=== PATIENT | male | born 1940 | race Caucasian/White ===

== ENCOUNTER 2017-07-23 20:16 | Outpatient (CLI) | payer MEDICARE, OTHER ==
[2017-07-23 19:07] LABS: BASOPHILS % (AUTO) 0.6 %; EOSINOPHILS # (AUTO) 0.4 10^3/uL (0.0-0.7); EOSINOPHILS % (AUTO) 6.2 %; HGB - HEMOGLOBIN 13.9 g/dL (14.0-18.0); LYMPHOCYTES # (AUTO) 1.4 10^3/uL (1.5-3.5); LYMPHOCYTES % (AUTO) 20.3 %; MEAN CORPUSCULAR HEMOGLOBIN 33.2 pg (27.0-31.0); MEAN CORPUSCULAR HGB CONC 32.9 g/dL (32.0-36.0); MEAN CORPUSCULAR VOLUME 100.8 fL (80.0-94.0); MEAN PLATELET VOLUME 7.4 fL (7.4-11.4); MONOCYTES # (AUTO) 0.6 10^3/uL (0.0-1.0); MONOCYTES % (AUTO) 9.2 %; NEUTROPHILS # (AUTO) 4.4 10^3/uL (1.5-6.6); NEUTROPHILS % (AUTO) 63.7 %; PLT - PLATELET COUNT 263 10^3/uL (130-450); RED BLOOD COUNT 4.19 10^6/uL (4.70-6.10); RED CELL DISTRIBUTION WIDTH 12.8 % (12.0-15.0); WHITE BLOOD COUNT 6.8 x10^3/uL (4.8-10.8)
[2017-07-23 19:29] LABS: HEMOGLOBIN A1C 0.83 g/dL; HEMOGLOBIN A1C % 7.2 % (4.6-6.2)
[2017-07-23 19:35] LABS: ALBUMIN 4.2 g/dL (3.2-5.5); ALBUMIN/GLOBULIN RATIO 1.4 (1.0-2.2); ALKALINE PHOSPHATASE 43 IU/L (42-121); ALT ALANINE AMINOTRANSFERASE 17 IU/L (10-60); AST ASPARTATE AMINOTRANSFERASE 19 IU/L (10-42); BILIRUBIN,TOTAL 1.2 mg/dL (0.2-1.0); BUN - BLOOD UREA NITROGEN 18 mg/dL (6-20); CALCIUM 9.6 mg/dL (8.5-10.3); CARBON DIOXIDE - CO2 26 mmol/L (21-32); CHLORIDE 104 mmol/L (101-111); CHOLESTEROL 143 mg/dL; CREATININE 1.2 mg/dL (0.6-1.2); GFR - MDRD 59 (>89); GLUCOSE 127 mg/dL (70-100); HDL CHOLESTEROL 48 mg/dL; LDL CHOLESTEROL,CALCULATED 80 mg/dL; LDL/HDL RATIO 1.7 (<3.6); PSA FREE 0.02 ng/mL (0.16-2.81); PSA TOTAL 0.11 ng/mL (0.000-2.000); SODIUM 137 mmol/L (135-145); TOTAL PROTEIN 7.1 g/dL (6.7-8.2); VLDL CHOLESTEROL 15 mg/dL
== END 2017-07-23 20:17 | disposition home or self-care (01) ==
LOC: LAB.WCP 20:16
PROVIDERS: ATTEND Family Medicine
DX: I10 Essential (primary) hypertension (principal); E11.9 Type 2 diabetes mellitus without complications; E03.9 Hypothyroidism, unspecified; G47.30 Sleep apnea, unspecified; N40.0 Benign prostatic hyperplasia without lower urinary tract symptoms
CPT/HCPCS: 36415; 80053; 80061; 82043; 83036; 83721; 84154; 84443; 85025

== ENCOUNTER → 2018-04-22 | Outpatient (CLI) | payer MEDICARE, OTHER ==
[2018-04-22 13:35] LABS: ALBUMIN 4.2 g/dL (3.2-5.5); ALBUMIN/GLOBULIN RATIO 1.3 (1.0-2.2); BILIRUBIN,TOTAL 1.3 mg/dL (0.2-1.0); CALCIUM 9.7 mg/dL (8.5-10.3); CREATININE 1.3 mg/dL (0.6-1.2); TOTAL PROTEIN 7.4 g/dL (6.7-8.2)
[2018-04-22 13:58] LABS: HB2 TOTAL 16.3 g/dL; HEMOGLOBIN A1C 1.01 g/dL; HEMOGLOBIN A1C % 7.8 % (4.6-6.2)
== END ==
LOC: LAB.WCP 08:25
PROVIDERS: ATTEND Family Medicine
DX: E78.5 Hyperlipidemia, unspecified (principal); E11.9 Type 2 diabetes mellitus without complications
CPT/HCPCS: 36415; 80053; 82043; 83036

== ENCOUNTER 2018-07-08 06:48 | Day surgery (SDC) | payer MEDICARE, OTHER ==
[2018-07-08] MEDS ORDERED: LACTATED RINGERS 1,000 ML IV ONE (07:08)
[2018-07-08] MEDS ORDERED: fentaNYL 250 MCG/5 ML VIAL IVP ONE (08:18)
[2018-07-08] MEDS ORDERED: MIDAZOLAM 2 MG/2 ML VIAL IVP ONE (08:18)
[2018-07-08 09:02] VITALS: BP 112/96
== END 2018-07-08 06:49 | disposition home or self-care (01) ==
LOC: SDS 06:48
PROVIDERS: ATTEND Surgery
PROC: 0DJD8ZZ Inspection of Lower Intestinal Tract, Via Natural or Artificial Opening Endoscopic (ICD-10-PCS; principal; 2018-07-08 08:15)
DX: Z12.11 Encounter for screening for malignant neoplasm of colon (principal); K57.30 Diverticulosis of large intestine without perforation or abscess without bleeding; K64.8 Other hemorrhoids; I10 Essential (primary) hypertension; E11.9 Type 2 diabetes mellitus without complications; Z87.891 Personal history of nicotine dependence; E78.00 Pure hypercholesterolemia, unspecified
CPT/HCPCS: G0121; J7120

== ENCOUNTER 2018-07-16 10:42 | Outpatient (CLI) | payer MEDICARE, OTHER ==
[2018-07-16 19:04] LABS: BASOPHILS # (AUTO) 0.1 10^3/uL (0.0-0.1); EOSINOPHILS # (AUTO) 0.4 10^3/uL (0.0-0.7); HGB - HEMOGLOBIN 14.8 g/dL (14.0-18.0); LYMPHOCYTES # (AUTO) 1.6 10^3/uL (1.5-3.5); LYMPHOCYTES % (AUTO) 26.5 %; MEAN CORPUSCULAR HEMOGLOBIN 34.1 pg (27.0-31.0); MEAN CORPUSCULAR HGB CONC 32.8 g/dL (32.0-36.0); MEAN CORPUSCULAR VOLUME 104.1 fL (80.0-94.0); MEAN PLATELET VOLUME 7.8 fL (7.4-11.4); MONOCYTES # (AUTO) 0.6 10^3/uL (0.0-1.0); MONOCYTES % (AUTO) 9.8 %; NEUTROPHILS # (AUTO) 3.3 10^3/uL (1.5-6.6); NEUTROPHILS % (AUTO) 56.7 %; PLT - PLATELET COUNT 256 10^3/uL (130-450); RED BLOOD COUNT 4.34 10^6/uL (4.70-6.10); RED CELL DISTRIBUTION WIDTH 13.7 % (12.0-15.0); WHITE BLOOD COUNT 5.9 x10^3/uL (4.8-10.8)
[2018-07-16 19:23] LABS: HB2 TOTAL 16.1 g/dL; HEMOGLOBIN A1C 0.97 g/dL; HEMOGLOBIN A1C % 7.7 % (4.6-6.2)
[2018-07-16 19:36] LABS: ALBUMIN 4.1 g/dL (3.2-5.5); ALBUMIN/GLOBULIN RATIO 1.3 (1.0-2.2); ALKALINE PHOSPHATASE 45 IU/L (42-121); ALT ALANINE AMINOTRANSFERASE 18 IU/L (10-60); AST ASPARTATE AMINOTRANSFERASE 18 IU/L (10-42); BILIRUBIN,TOTAL 1.4 mg/dL (0.2-1.0); BUN - BLOOD UREA NITROGEN 20 mg/dL (6-20); CALCIUM 9.3 mg/dL (8.5-10.3); CARBON DIOXIDE - CO2 30 mmol/L (21-32); CHLORIDE 105 mmol/L (101-111); CHOL/HDL RATIO 3.4 (<5.0); CHOLESTEROL 168 mg/dL; CREATININE 1.1 mg/dL (0.6-1.2); GFR - MDRD 65 (>89); GLUCOSE 182 mg/dL (70-100); HDL CHOLESTEROL 50 mg/dL; LDL CHOLESTEROL,CALCULATED 97 mg/dL; LDL/HDL RATIO 1.9 (<3.6); SODIUM 142 mmol/L (135-145); TOTAL PROTEIN 7.3 g/dL (6.7-8.2); VLDL CHOLESTEROL 21 mg/dL
== END 2018-07-16 10:43 | disposition home or self-care (01) ==
LOC: LAB.WCP 10:42
PROVIDERS: ATTEND Physician Assistant Medical
DX: E78.5 Hyperlipidemia, unspecified (principal); E11.9 Type 2 diabetes mellitus without complications; E03.9 Hypothyroidism, unspecified; I10 Essential (primary) hypertension
CPT/HCPCS: 36415; 80053; 80061; 83036; 83721; 84443; 85025

== ENCOUNTER 2018-08-26 13:30 | Outpatient (CLI) | payer MEDICARE, OTHER ==
--- NOTE | 2018-08-26 15:40 | XRAY Report ---
Reason: HYPOXIA Procedure Date: 08/26/2018 Accession Number: [id number] / [id number] Procedure: WCP - Chest 2 View X-Ray CPT Code: 45258 FULL RESULT: EXAM: CHEST RADIOGRAPHY EXAM DATE: 08/26/2018 01:47 PM. CLINICAL HISTORY: Hypoxia. COMPARISON: 08/13/2015 1:43 PM CHEST 2 VIEW PA/LAT 09/05/2015 8:04 PM. TECHNIQUE: 2 views. FINDINGS: Lungs/Pleura: There is stable bilateral calcific pleural plaquing in both hemithoraces and over the domes of the hemidiaphragms consistent with history of asbestos exposure. Stable subsegmental opacities in the lingula and left lower lung. No appreciable effusion or extraventilatory air. Mediastinum: Heart and mediastinal contours are unremarkable. Other: None. IMPRESSION: Stable appearance of calcified pleural plaques bilaterally consistent with a history of asbestos exposure. RADIA
== END 2018-08-26 13:31 | disposition home or self-care (01) ==
LOC: DI.WCP 13:30
PROVIDERS: ATTEND Physician Assistant Medical
DX: R09.02 Hypoxemia (principal); J92.0 Pleural plaque with presence of asbestos
CPT/HCPCS: 71046

== ENCOUNTER 2018-09-06 08:00 | Outpatient (CLI) | payer MEDICARE, OTHER ==
[2018-09-06 13:30] LABS: BASOPHILS # (AUTO) 0.1 10^3/uL (0.0-0.1); BASOPHILS % (AUTO) 1.1 %; EOSINOPHILS # (AUTO) 0.3 10^3/uL (0.0-0.7); HGB - HEMOGLOBIN 14.1 g/dL (14.0-18.0); LYMPHOCYTES # (AUTO) 1.5 10^3/uL (1.5-3.5); LYMPHOCYTES % (AUTO) 22.5 %; MEAN CORPUSCULAR HEMOGLOBIN 33.7 pg (27.0-31.0); MEAN CORPUSCULAR HGB CONC 33.3 g/dL (32.0-36.0); MEAN CORPUSCULAR VOLUME 101.5 fL (80.0-94.0); MEAN PLATELET VOLUME 7.7 fL (7.4-11.4); MONOCYTES # (AUTO) 0.7 10^3/uL (0.0-1.0); MONOCYTES % (AUTO) 9.6 %; NEUTROPHILS # (AUTO) 4.2 10^3/uL (1.5-6.6); NEUTROPHILS % (AUTO) 61.8 %; PLT - PLATELET COUNT 250 10^3/uL (130-450); RED BLOOD COUNT 4.18 10^6/uL (4.70-6.10); WHITE BLOOD COUNT 6.8 x10^3/uL (4.8-10.8)
[2018-09-06 13:49] LABS: BILIRUBIN,DIRECT 0.2 mg/dL (0.1-0.5); BILIRUBIN,TOTAL 1.5 mg/dL (0.2-1.0); CREATININE 1.2 mg/dL (0.6-1.2); TOTAL PROTEIN 7.1 g/dL (6.7-8.2)
== END 2018-09-06 23:59 | disposition home or self-care (01) ==
LOC: LAB.WCP 08:00
PROVIDERS: ATTEND Podiatrist
DX: B35.1 Tinea unguium (principal); B35.3 Tinea pedis
CPT/HCPCS: 36415; 80076; 82565; 84520; 85025

== ENCOUNTER 2018-10-29 09:03 | Outpatient (CLI) | payer MEDICARE, OTHER ==
[2018-10-29 13:07] LABS: ALBUMIN 3.9 g/dL (3.2-5.5); ALBUMIN/GLOBULIN RATIO 1.2 (1.0-2.2); BILIRUBIN,TOTAL 0.9 mg/dL (0.2-1.0); CALCIUM 9.7 mg/dL (8.5-10.3); CREATININE 1.2 mg/dL (0.6-1.2); TOTAL PROTEIN 7.1 g/dL (6.7-8.2)
[2018-10-29 13:44] LABS: HB2 TOTAL 15.6 g/dL; HEMOGLOBIN A1C 0.98 g/dL; HEMOGLOBIN A1C % 7.9 % (4.6-6.2)
== END 2018-10-29 09:04 | disposition home or self-care (01) ==
LOC: LAB.WCP 09:03
PROVIDERS: ATTEND Physician Assistant Medical
DX: E11.9 Type 2 diabetes mellitus without complications (principal)
CPT/HCPCS: 36415; 80053; 83036

== ENCOUNTER 2019-01-10 | Outpatient (CLI) | payer MEDICARE, OTHER | END 2019-01-10 23:59 | disposition home or self-care (01) ==

== ENCOUNTER 2019-01-20 07:24 | Outpatient (CLI) | payer MEDICARE, OTHER ==
[2019-01-20 12:40] LABS: ALBUMIN/GLOBULIN RATIO 1.3 (1.0-2.2); ALKALINE PHOSPHATASE 46 IU/L (42-121); ALT ALANINE AMINOTRANSFERASE 19 IU/L (10-60); AST ASPARTATE AMINOTRANSFERASE 21 IU/L (10-42); BILIRUBIN,TOTAL 1.1 mg/dL (0.2-1.0); BUN - BLOOD UREA NITROGEN 30 mg/dL (6-20); CALCIUM 9.6 mg/dL (8.5-10.3); CARBON DIOXIDE - CO2 24 mmol/L (21-32); CHLORIDE 106 mmol/L (101-111); CHOL/HDL RATIO 3.9 (<5.0); CHOLESTEROL 160 mg/dL; CREATININE 1.3 mg/dL (0.6-1.2); GFR - MDRD 54 (>89); GLUCOSE 69 mg/dL (70-100); HDL CHOLESTEROL 41 mg/dL; LDL CHOLESTEROL,CALCULATED 105 mg/dL; LDL/HDL RATIO 2.6 (<3.6); SODIUM 145 mmol/L (135-145); TOTAL PROTEIN 7.2 g/dL (6.7-8.2); VLDL CHOLESTEROL 14 mg/dL
[2019-01-20 12:44] LABS: BASOPHILS # (AUTO) 0.1 10^3/uL (0.0-0.1); BASOPHILS % (AUTO) 0.9 %; EOSINOPHILS # (AUTO) 0.5 10^3/uL (0.0-0.7); EOSINOPHILS % (AUTO) 7.1 %; HGB - HEMOGLOBIN 14.2 g/dL (14.0-18.0); LYMPHOCYTES % (AUTO) 28.3 %; MEAN CORPUSCULAR HEMOGLOBIN 34.4 pg (27.0-31.0); MEAN CORPUSCULAR VOLUME 104.1 fL (80.0-94.0); MEAN PLATELET VOLUME 9.7 fL (7.4-11.4); MONOCYTES # (AUTO) 0.8 10^3/uL (0.0-1.0); NEUTROPHILS # (AUTO) 3.7 10^3/uL (1.5-6.6); NEUTROPHILS % (AUTO) 52.4 %; PLT - PLATELET COUNT 250 10^3/uL (130-450); RED BLOOD COUNT 4.13 10^6/uL (4.70-6.10); RED CELL DISTRIBUTION WIDTH 12.9 % (12.0-15.0)
[2019-01-20 16:28] LABS: HB2 TOTAL 15.1 g/dL; HEMOGLOBIN A1C 0.86 g/dL; HEMOGLOBIN A1C % 7.4 % (4.6-6.2)
== END 2019-01-20 23:59 | disposition home or self-care (01) ==
LOC: LAB.WCP 07:24
PROVIDERS: ATTEND Physician Assistant Medical
DX: E11.9 Type 2 diabetes mellitus without complications (principal); E03.9 Hypothyroidism, unspecified; I10 Essential (primary) hypertension
CPT/HCPCS: 36415; 80053; 80061; 83036; 83721; 84443; 85025

== ENCOUNTER 2019-05-06 10:16 | Outpatient (CLI) | payer MEDICARE, OTHER ==
[2019-05-06 12:58] LABS: CALCIUM 9.3 mg/dL (8.5-10.3); CREATININE 1.3 mg/dL (0.6-1.2)
[2019-05-06 13:05] LABS: HB2 TOTAL 14.8 g/dL; HEMOGLOBIN A1C 0.84 g/dL; HEMOGLOBIN A1C % 7.3 % (4.6-6.2)
[2019-05-06 15:21] LABS: FREE T4 (FREE THYROXINE) 0.94 ng/dL (0.58-1.64)
== END 2019-05-06 23:59 | disposition home or self-care (01) ==
LOC: LAB.WCP 10:16
PROVIDERS: ATTEND Physician Assistant Medical
DX: E11.9 Type 2 diabetes mellitus without complications (principal); E03.9 Hypothyroidism, unspecified
CPT/HCPCS: 36415; 80048; 83036; 84439; 84443

== ENCOUNTER 2019-06-17 13:08 | Emergency (ER) | payer MEDICARE, OTHER ==
[2019-06-17 13:29] LABS: BASOPHILS # (AUTO) 0.1 10^3/uL (0.0-0.1); BASOPHILS % (AUTO) 0.5 %; EOSINOPHILS # (AUTO) 0.1 10^3/uL (0.0-0.7); EOSINOPHILS % (AUTO) 0.6 %; HGB - HEMOGLOBIN 14.7 g/dL (14.0-18.0); LYMPHOCYTES # (AUTO) 1.5 10^3/uL (1.5-3.5); LYMPHOCYTES % (AUTO) 11.7 %; MEAN CORPUSCULAR HEMOGLOBIN 34.1 pg (27.0-31.0); MEAN CORPUSCULAR HGB CONC 33.4 g/dL (32.0-36.0); MEAN CORPUSCULAR VOLUME 102.1 fL (80.0-94.0); MEAN PLATELET VOLUME 9.2 fL (7.4-11.4); MONOCYTES # (AUTO) 1.1 10^3/uL (0.0-1.0); NEUTROPHILS # (AUTO) 10.4 10^3/uL (1.5-6.6); NEUTROPHILS % (AUTO) 78.7 %; PLT - PLATELET COUNT 260 10^3/uL (130-450); RED BLOOD COUNT 4.31 10^6/uL (4.70-6.10); RED CELL DISTRIBUTION WIDTH 12.4 % (12.0-15.0); WHITE BLOOD COUNT 13.2 x10^3/uL (4.8-10.8)
[2019-06-17 13:43] LABS: ALBUMIN 4.3 g/dL (3.2-5.5); ALBUMIN/GLOBULIN RATIO 1.4 (1.0-2.2); BILIRUBIN,TOTAL 1.7 mg/dL (0.2-1.0); CALCIUM 9.4 mg/dL (8.5-10.3); CREATININE 1.3 mg/dL (0.6-1.2); TOTAL PROTEIN 7.4 g/dL (6.7-8.2)
--- NOTE | 2019-06-17 13:51 | XRAY Report ---
Reason: CARMELINA WILLIAMSON Procedure Date: 06/17/2019 Accession Number: [id number] / [id number] Procedure: XR - Chest 2 View X-Ray CPT Code: 74011 Final Report FULL RESULT: EXAM: CHEST RADIOGRAPHY EXAM DATE: 06/17/2019 01:33 PM. CLINICAL HISTORY: Chest pain and shortness of breath. COMPARISON: CHEST 2 VIEW 08/26/2018 1:30 PM CHEST 2 VIEW PA/LAT 09/05/2015 8:04 PM. TECHNIQUE: 2 views. FINDINGS: Lungs/Pleura: Coarse lung markings. Calcified pleural plaques present No pleural effusion. Mediastinum: Atherosclerotic aortic calcification. Other: None. IMPRESSION: 1. No acute consolidation. 2. Calcified pleural plaques compatible with remote asbestos exposure. 3. Potential chronic interstitial lung disease, consider high-resolution chest CT. RADIA
--- NOTE | 2019-06-17 14:17 | ED Physician Documentation ---
PD HPI CHEST PAIN - Stated complaint Stated Complaint: CHEST PX - Chief complaint Chief Complaint: Cardiac - History obtained from History obtained from: Patient - History of Present Illness Timing - onset: Last night (about 11 pm, while sitting watching TV.) Timing - onset during: Rest Timing - duration: Hours (He states the main discomfort of it lasted about an hour and then dissipated though is still having some element of chest discomfort into this morning. He did not notice any worsening or improvement with eating this morning. He tried some antacids without improvement. He is noticing some upper abdominal discomfort this morning as well. Mild nausea but no vomiting.) Timing - details: Gradual onset, Still present, Waxing and waning Quality: Pressure, Aching, Indigestion Location: Substernal, Left chest, Epigastric Radiation: Left upper extremity, Right upper extremity Improved by: No: Antacids Worsened by: No: Exertion, Inspiration, Movement Associated symptoms: Shortness of air, General Weakness. No: Nausea, Feeling faint / dizzy Similar symptoms before: Has not had sx before Recently seen: Not recently seen Review of Systems Constitutional: denies: Fever, Chills, Myalgias Nose: denies: Rhinorrhea / runny nose, Congestion Throat: denies: Sore throat Cardiac: reports: Chest pain / pressure. denies: Palpitations, Pedal edema, Calf pain Respiratory: denies: Dyspnea, Cough, Wheezing GI: reports: Nausea. denies: Vomiting, Diarrhea Skin: denies: Rash, Lesions, Laceration (s) Musculoskeletal: reports: Extremity pain (He states he fell about a month ago and injured the outside of his ankle and his continued with some pain on the lateral lower leg. There is no calf pain or swelling. He has had persistent ankle tenderness.) Neurologic: reports: Generalized weakness. denies: Focal weakness, Near syncope Endocrine: denies: Weight loss, Easy bruising / bleeding Immunocompromised: denies: Immunocompromised PD PAST MEDICAL HISTORY - Past Medical History Cardiovascular: High cholesterol Respiratory: Sleep apnea, Other (History of prior lung calcifications that has been investigated with scans years ago. No history of asbestos exposure.) Endocrine/Autoimmune: Type 2 diabetes GI: None : None HEENT: None Psych: None Musculoskeletal: None Derm: None - Past Surgical History General: Hiatal hernia repair, Colonoscopy HEENT: Tonsil/Adenoidectomy - Present Medications Home Medications: Ambulatory Orders Medication Instructions Recorded Confirmed Alfuzosin HCl [Alfuzosin HCl ER] 1 tab PO DAILY 01/12/15 07/08/18 Aspirin 81 mg PO DAILY 01/12/15 07/08/18 Finasteride 5 mg PO DAILY 01/12/15 07/08/18 Insulin Glargine,Hum.rec.anlog 15 units SQ DAILY 01/12/15 07/08/18 [Lantus] Levothyroxine [Synthroid] 150 mcg PO DAILY 01/12/15 07/08/18 Simvastatin 15 mg PO DAILY 01/12/15 07/08/18 Lisinopril [Prinivil] 10 mg ORAL DAILY 01/13/15 07/08/18 - Allergies Allergies/Adverse Reactions: Allergies Allergy/AdvReac Type Severity Reaction Status Date / Time Penicillins AdvReac Anaphylaxis Verified 06/17/19 13:12 - Social History Does the pt smoke?: No Smoking Status: Former smoker Does the pt drink ETOH?: No - Family History Family history: reports: CAD - Immunizations Immunizations are current?: Yes PD ED PE NORMAL - Vitals Vital signs reviewed: Yes - General General: Alert and oriented X 3, No acute distress, Well developed/nourished - HEENT HEENT: Moist mucous membranes, Pharynx benign - Neck Neck: Supple, no meningeal sign, No adenopathy - Cardiac Cardiac: RRR, No murmur, Other (no chestwall tenderness) - Respiratory Respiratory: No respiratory distress, Clear bilaterally - Abdomen Abdomen: Normal bowel sounds, Soft, Non distended, No organomegaly, Other (Tender in epigastric and RUQ area with some guarding. ) - Male Male : No: Deferred - Rectal Rectal: No: Deferred - Back Back: No CVA TTP - Derm Derm: Normal color, Warm and dry - Extremities Extremities: No deformity, No edema, No calf tenderness / cord, Other (The left lateral distal fibula shows some mild tenderness without any deformity. There is no bruising noted. The calf itself is not tender. There is no leg edema noted.) - Neuro Neuro: Alert and oriented X 3, No motor deficit, No sensory deficit, Normal speech Eye Opening: Spontaneous Motor: Obeys Commands Verbal: Oriented GCS Score: 15 Results - Vitals Vitals: Vital Signs - 24 hr 06/17/19 06/17/19 06/17/19 13:11 14:03 14:56 Temperature 36.9 C Heart Rate 89 91 75 Respiratory 18 18 18 Rate Blood Pressure 139/68 H 128/68 144/71 H O2 Saturation 95 97 95 06/17/19 16:08 Temperature Heart Rate 80 Respiratory 18 Rate Blood Pressure 137/73 H O2 Saturation 97 Oxygen O2 Source Room air - EKG (time done) 13:11 Rate: Rate (enter#) (82) Rhythm: NSR [place]: Normal Intervals: Normal ND QRS: Normal, Poor R wave progression Ischemia: Normal ST segments, T wave inversion (lateral leads with biphasic t waves.), Non specific changes. No: ST elevation c/w ischemia, ST depression - Labs Labs: Laboratory Tests 06/17/19 06/17/19 06/17/19 13:22 13:22 14:10 WBC 13.2 H RBC 4.31 L Hgb 14.7 Hct 44.0 MCV 102.1 H MCH 34.1 H MCHC 33.4 RDW 12.4 Plt Count 260 MPV 9.2 Neut # (Auto) 10.4 H Lymph # (Auto) 1.5 Braxton # (Auto) 1.1 H Eos # (Auto) 0.1 Baso # (Auto) 0.1 Absolute Nucleated RBC 0.00 Nucleated RBC % 0.0 Sodium 138 Potassium 3.9 Chloride 102 Carbon Dioxide 28 Anion Gap 8.0 BUN 24 H Creatinine 1.3 H Estimated GFR (MDRD) 54 L Glucose 210 H Calcium 9.4 Total Bilirubin 1.7 H AST 114 H ALT 42 Alkaline Phosphatase 46 Troponin I High Sens 85947.0 H* Total Protein 7.4 Albumin 4.3 Globulin 3.1 Albumin/Globulin Ratio 1.4 Lipase 37 - Rads (name of study) chest xray Radiology: Prelim report reviewed (old calcifications; no acute consolidation. ), See rad report RUQ ultrasound Radiology: Prelim report reviewed, See rad report PD MEDICAL DECISION MAKING - ED course Complexity details: reviewed results (His EKG showed some biphasic T waves in the lateral leads but no ST changes. His troponin is significantly elevated suggesting acute myocardial injury.), re-evaluated patient (He actually an improvement with the GI cocktail. However his troponin is irrefutably elevated.), considered differential (His symptoms are concerning for potential heart related. However he does have some components that sound like heartburn and also on exam now has tenderness in the right upper quadrant so consider gallbladder as well. We will test labs EKG chest x-ray and also right upper quadrant ultrasound. He had previously an injury of the left ankle so can get an x-ray there but there is no calf tenderness no edema to suggest concern for DVT. He does not have dyspnea.), d/w patient, d/w loss prevention consultant ([facility] did not have any beds available. Spoke with cardiology and hospitalist at [facility] who accept transfer of the patient. The primary accepting will be the hospitalist Dr. Coyne. I did talk with Dr. Felton on for cardiology.) ED course: The patient is without any pain at this time. He has a significantly elevated troponin. Nonspecific EKG changes. There are no ST elevations. Presume a non- ST elevation [facility] given his chest pain episode last evening. He is stable for transfer. Departure - Departure Disposition: 02 Transfer Acute Care Hosp Clinical Impression: Elevated troponin, Non-STEMI (non-ST elevated myocardial infarction) Chest pain Qualifiers: Chest pain type: precordial pain Qualified Code(s): R07.2 - Precordial pain Contusion of left ankle Qualifiers: Encounter type: initial encounter Qualified Code(s): S90.02XA - Contusion of left ankle, initial encounter Condition: Stable Record reviewed to determine appropriate education?: Yes
[2019-06-17] MEDS ORDERED: MAG HYDROX/AL HYDROX/SIMETH 30 ML UDC PO STA (14:33)
[2019-06-17] MEDS: LIDOCAINE VISCOUS 2% 15 ML UDC MM STA ×2 (14:35→14:39)
[2019-06-17] MEDS ORDERED: CLOPIDOGREL 75 MG TABLET PO STA (14:48)
[2019-06-17] MEDS ORDERED: ASPIRIN CHEW 81 MG TABLET PO STA (14:48)
[2019-06-17] MEDS: NITROGLYCERIN SL 0.4 MG TABLET SL STA ×4 (14:56→18:37)
--- NOTE | 2019-06-17 15:07 | XRAY Report ---
Reason: fell from ladder, with persistent fibular pain Procedure Date: 06/17/2019 Accession Number: [id number] / [id number] Procedure: XR - Tib/Fib LT CPT Code: Final Report FULL RESULT: EXAM: LEFT TIBIA/FIBULA RADIOGRAPHY EXAM DATE: 06/17/2019 02:48 PM. CLINICAL HISTORY: Fell from ladder, with persistent fibular pain. COMPARISON: None. TECHNIQUE: 2 views. FINDINGS: Bones: Normal. No fracture or bone lesion. Joints: The visualized knee and ankle joints are normal. No effusions. Soft Tissues: No acute abnormalities. There are vascular calcifications. IMPRESSION: No evidence of fracture or dislocation. No acute soft tissue abnormalities. RADIA
[2019-06-17] MEDS ORDERED: FAMOTIDINE 20 MG/2 ML VIAL IVP STA (15:26)
[2019-06-17] MEDS ORDERED: SODIUM CHLORIDE 0.9% 1,000 ML IV ONE (16:11)
[2019-06-17] MEDS ORDERED: HEPARIN 5,000 UNIT/ML VIAL IVP STA (16:11)
[2019-06-17] MEDS ORDERED: HEPARIN 25000UNITS/500ML (D5W) 25,000 UNIT/500 ML BAG IV STA (16:11)
--- NOTE | 2019-06-17 16:25 | Ultrasound Report ---
Reason: RUQ tender/ chest pain Procedure Date: 06/17/2019 Accession Number: [id number] / [id number] Procedure: US - Abdomen Limited CPT Code: Final Report FULL RESULT: EXAM: ABDOMEN ULTRASOUND LIMITED, RUQ EXAM DATE: 06/17/2019 03:30 PM. CLINICAL HISTORY: RUQ tender/ chest pain. COMPARISON: CHEST 2 VIEW 06/17/2019 1:19 PM. TECHNIQUE: Real-time scanning was performed with static images obtained. FINDINGS: Liver: Normal in size, 15.6 cm. Moderately hyperechoic throughout with mildly posterior acoustic penetration consistent with fatty infiltration. Main portal vein flow: Hepatopetal. Gallbladder: Non-mobile nonshadowing 5 mm hyperechoic gallbladder cholesterol polyp at the fundus. No stones. No abnormal gallbladder dilation, sludge, wall thickening, pericholecystic fluid, or sonographic Phan sign (on pain medication). Biliary System: CBD measures 6.8 mm. No intrahepatic or extrahepatic ductal dilatation. Other: Right kidney normal in appearance and size, 11.2 cm. IMPRESSION: 1. No findings are identified to explain right upper quadrant pain. 2. 5 mm gallbladder cholesterol polyp. No stones or evidence of cholecystitis. 3. Normal-sized liver with diffuse steatosis. RADIA
[2019-06-17 20:04] VITALS: BP 131/80
== END 2019-06-17 20:04 | disposition short-term general hospital (02) ==
LOC: ED 13:08
DX: I21.4 Non-ST elevation (NSTEMI) myocardial infarction (principal); R10.11 Right upper quadrant pain; S90.02XA Contusion of left ankle, initial encounter; W11.XXXA Fall on and from ladder, initial encounter; E11.9 Type 2 diabetes mellitus without complications; Z79.4 Long term (current) use of insulin; Z87.891 Personal history of nicotine dependence
CPT/HCPCS: 36415; 71046; 73590; 76705; 80053; 83690; 84484; 85025; 93005; 96374; 96375; 99285; A9270

== ENCOUNTER 2019-06-17 20:18 | Outpatient (CLI) | payer MEDICARE, OTHER | END 2019-06-17 23:59 | disposition short-term general hospital (02) | LOC: EMS 20:18 | PROVIDERS: ATTEND Surgery | DX: I21.4 Non-ST elevation (NSTEMI) myocardial infarction (principal) | CPT/HCPCS: A0425; A0426 ==

== ENCOUNTER 2019-08-22 13:58 | Outpatient (CLI) | payer MEDICARE, OTHER ==
[2019-08-22 18:24] LABS: BASOPHILS # (AUTO) 0.1 10^3/uL (0.0-0.1); EOSINOPHILS # (AUTO) 0.5 10^3/uL (0.0-0.7); EOSINOPHILS % (AUTO) 7.6 %; LYMPHOCYTES # (AUTO) 1.7 10^3/uL (1.5-3.5); LYMPHOCYTES % (AUTO) 25.4 %; MEAN CORPUSCULAR HEMOGLOBIN 34.5 pg (27.0-31.0); MEAN CORPUSCULAR HGB CONC 32.6 g/dL (32.0-36.0); MEAN CORPUSCULAR VOLUME 105.8 fL (80.0-94.0); MEAN PLATELET VOLUME 9.9 fL (7.4-11.4); MONOCYTES # (AUTO) 0.9 10^3/uL (0.0-1.0); MONOCYTES % (AUTO) 13.5 %; NEUTROPHILS # (AUTO) 3.6 10^3/uL (1.5-6.6); NEUTROPHILS % (AUTO) 52.2 %; PLT - PLATELET COUNT 252 10^3/uL (130-450); RED BLOOD COUNT 3.77 10^6/uL (4.70-6.10); RED CELL DISTRIBUTION WIDTH 13.1 % (12.0-15.0); WHITE BLOOD COUNT 6.8 x10^3/uL (4.8-10.8)
[2019-08-22 18:59] LABS: ALBUMIN 3.9 g/dL (3.2-5.5); ALBUMIN/GLOBULIN RATIO 1.5 (1.0-2.2); ALKALINE PHOSPHATASE 46 IU/L (42-121); ALT ALANINE AMINOTRANSFERASE 27 IU/L (10-60); AST ASPARTATE AMINOTRANSFERASE 21 IU/L (10-42); BILIRUBIN,TOTAL 1.4 mg/dL (0.2-1.0); BUN - BLOOD UREA NITROGEN 18 mg/dL (6-20); CALCIUM 8.8 mg/dL (8.5-10.3); CARBON DIOXIDE - CO2 27 mmol/L (21-32); CHLORIDE 105 mmol/L (101-111); CHOL/HDL RATIO 2.9 (<5.0); CHOLESTEROL 103 mg/dL; CREATININE 1.3 mg/dL (0.6-1.2); GFR - MDRD 54 (>89); GLUCOSE 178 mg/dL (70-100); HB2 TOTAL 13.3 g/dL; HDL CHOLESTEROL 35 mg/dL; HEMOGLOBIN A1C 0.8 g/dL; HEMOGLOBIN A1C % 7.7 % (4.6-6.2); LDL CHOLESTEROL,CALCULATED 46 mg/dL; LDL/HDL RATIO 1.3 (<3.6); SODIUM 140 mmol/L (135-145); TOTAL PROTEIN 6.5 g/dL (6.7-8.2); VLDL CHOLESTEROL 22 mg/dL
[2019-08-22 19:48] LABS: FREE T4 (FREE THYROXINE) 1.14 ng/dL (0.58-1.64)
== END 2019-08-22 23:59 | disposition home or self-care (01) ==
LOC: LAB.WCP 13:58
PROVIDERS: ATTEND Physician Assistant Medical
DX: E11.9 Type 2 diabetes mellitus without complications (principal)
CPT/HCPCS: 36415; 80053; 80061; 83036; 83721; 84439; 84443; 85025

== ENCOUNTER 2019-08-28 08:00 | Outpatient (CLI) | payer MEDICARE, OTHER ==
--- NOTE | 2019-08-29 09:16 | XRAY Report ---
Reason: RIGHT SHOULDER IMPINGEMENT SYNDROME Procedure Date: 08/28/2019 Accession Number: [id number] / [id number] Procedure: WCP - Shoulder 2 View RT CPT Code: Final Report FULL RESULT: EXAM: RIGHT SHOULDER RADIOGRAPHY EXAM DATE: 08/28/2019 02:48 PM. CLINICAL HISTORY: Right shoulder impingement syndrome. COMPARISON: None. TECHNIQUE: 3 views. FINDINGS: There is mild narrowing of the subacromial space. There is tendinous calcification versus osteophytic spurring extending cephalad at the humeral tuberosity. 3 mm osteophyte versus small loose body cephalad to the glenoid. There is mild narrowing of the AC articulation with osteophytic spurring. IMPRESSION: Calcified tendinosis versus osteophyte cephalad off the humeral tuberosity. Osteophyte versus loose body superior to the glenoid. Mild narrowing of the subacromial space. Osteophytic spurring at the AC articulation. RADIA
== END 2019-08-28 23:59 | disposition home or self-care (01) ==
LOC: DI.WCP 08:00
PROVIDERS: ATTEND Physician Assistant Medical
DX: M25.811 Other specified joint disorders, right shoulder (principal)

== ENCOUNTER 2019-09-25 11:13 | Emergency (ER) | payer MEDICARE, OTHER ==
[2019-09-25] MEDS ORDERED: TRANEXAMIC ACID 1,000 MG/10 ML VIAL NAS STA (11:41)
--- NOTE | 2019-09-25 11:58 | ED Physician Documentation ---
History of Present Illness - Stated complaint Stated Complaint: NOSE BLEED - Chief complaint Chief Complaint: Heent - History obtained from History obtained from: Patient - History of Present Illness Timing: Today Pain level max: 0 Pain level now: 0 - Additonal information Additional information: 79-year-old male states that he is on Brilinta at home, started having a nosebleed this morning and it continues to trickle so came in for evaluation. Nothing makes it better or worse. Has a history of nosebleeds in the past. Started on Brilinta approximately 2 to 3 months ago. No chest pain. No shortness of breath. No syncope. No near syncope. Review of Systems Constitutional: denies: Fever Respiratory: denies: Cough GI: denies: Vomiting, Diarrhea Skin: denies: Rash Musculoskeletal: denies: Neck pain, Back pain Neurologic: denies: Headache PD PAST MEDICAL HISTORY - Past Medical History Past Medical History: Yes Cardiovascular: High cholesterol, [place] Respiratory: Sleep apnea, Other Endocrine/Autoimmune: Type 2 diabetes GI: None : None HEENT: None Psych: None Musculoskeletal: None Derm: None - Past Surgical History Past Surgical History: Yes General: Hiatal hernia repair, Colonoscopy HEENT: Tonsil/Adenoidectomy - Present Medications Home Medications: Ambulatory Orders Medication Instructions Recorded Confirmed Alfuzosin HCl [Alfuzosin HCl ER] 1 tab PO DAILY 01/12/15 07/08/18 Aspirin 81 mg PO DAILY 01/12/15 07/08/18 Finasteride 5 mg PO DAILY 01/12/15 07/08/18 Insulin Glargine,Hum.rec.anlog 15 units SQ DAILY 01/12/15 07/08/18 [Lantus] Levothyroxine [Synthroid] 150 mcg PO DAILY 01/12/15 07/08/18 Simvastatin 15 mg PO DAILY 01/12/15 07/08/18 Lisinopril [Prinivil] 10 mg ORAL DAILY 01/13/15 07/08/18 - Allergies Allergies/Adverse Reactions: Allergies Allergy/AdvReac Type Severity Reaction Status Date / Time Penicillins AdvReac Anaphylaxis Verified 09/25/19 11:25 - Social History Does the pt smoke?: No Smoking Status: Never smoker Does the pt drink ETOH?: No - Immunizations Immunizations are current?: Yes PD ED PE NORMAL - Vitals Vital signs reviewed: Yes - General General: Alert and oriented X 3, No acute distress - HEENT HEENT: Moist mucous membranes, Other (Small trickle of blood from the right nare. No visible source of the bleeding.) - Neck Neck: Supple, no meningeal sign - Cardiac Cardiac: RRR - Respiratory Respiratory: No respiratory distress, Clear bilaterally - Derm Derm: Warm and dry - Neuro Neuro: Alert and oriented X 3 Results - Vitals Vitals: Vital Signs - 24 hr 09/25/19 11:18 Temperature 36 C L Heart Rate 67 Respiratory 16 Rate Blood Pressure 120/62 O2 Saturation 96 Oxygen O2 Source Room air Procedures - Epistaxis Site: Right, Cannot determine Preparation: Clots removed, Other (Tranexamic acid) Other: Observed - no bleeding, Pt tolerated well PD MEDICAL DECISION MAKING - ED course Complexity details: considered differential, d/w patient ED course: 79-year-old male with a right sided epistaxis. Tranexamic acid was atomized int o the nose and a clamp applied. Bleeding resolved. We will have him follow-up with his doctor as needed for further care. Patient counseled regarding signs and symptoms for which I believe and urgent re-evaluation would be necessary. Patient with good understanding of and agreement to plan and is comfortable going home at this time This document was made in part using voice recognition software. While efforts are made to proofread this document, sound alike and grammatical errors may occur. Departure - Departure Disposition: 01 Home, Self Care Clinical Impression: Epistaxis Condition: Good Instructions: ED Nosebleed Follow-Up: your,doctor as needed [Other] Comments: Return if you worsen. Follow-up with your doctor for further care. Do not stick anything in the nose today. Do not pick the nose. If bleeding recurs, hold pressure for 15 minutes. You can use the nose clamp provided.
[2019-09-25 12:33] VITALS: BP 103/52
== END 2019-09-25 12:33 | disposition home or self-care (01) ==
LOC: ED 11:13
DX: R04.0 Epistaxis (principal); E78.00 Pure hypercholesterolemia, unspecified; E11.9 Type 2 diabetes mellitus without complications; G47.30 Sleep apnea, unspecified; Z79.02 Long term (current) use of antithrombotics/antiplatelets; Z79.82 Long term (current) use of aspirin; Z79.4 Long term (current) use of insulin; I25.2 Old myocardial infarction
CPT/HCPCS: 30901; 99282; 99284

== ENCOUNTER 2020-03-08 08:00 | Outpatient (CLI) | payer MEDICARE, OTHER ==
[2020-03-08 18:25] LABS: ALBUMIN 3.9 g/dL (3.2-5.5); ALBUMIN/GLOBULIN RATIO 1.3 (1.0-2.2); ALKALINE PHOSPHATASE 51 IU/L (42-121); ALT ALANINE AMINOTRANSFERASE 32 IU/L (10-60); AST ASPARTATE AMINOTRANSFERASE 26 IU/L (10-42); BILIRUBIN,TOTAL 1.8 mg/dL (0.2-1.0); BUN - BLOOD UREA NITROGEN 25 mg/dL (6-20); CALCIUM 9.4 mg/dL (8.5-10.3); CARBON DIOXIDE - CO2 26 mmol/L (21-32); CHLORIDE 103 mmol/L (101-111); CHOL/HDL RATIO 2.7 (<5.0); CHOLESTEROL 97 mg/dL; CREATININE 1.1 mg/dL (0.6-1.2); GLUCOSE 140 mg/dL (70-100); HDL CHOLESTEROL 36 mg/dL; LDL CHOLESTEROL,CALCULATED 44 mg/dL; LDL/HDL RATIO 1.2 (<3.6); SODIUM 138 mmol/L (135-145); TOTAL PROTEIN 6.9 g/dL (6.7-8.2); VLDL CHOLESTEROL 17 mg/dL
[2020-03-08 18:29] LABS: CREATININE,URINE 202.1 mg/dL; MICROALBUM/CREATININE RATIO,UR 6.9 ug/mg (<30.0); MICROALBUMIN,URINE 1.4 mg/dL (0-300.0)
[2020-03-08 19:02] LABS: FREE T4 (FREE THYROXINE) 1.63 ng/dL (0.58-1.64)
[2020-03-08 21:58] LABS: HEMOGLOBIN A1c% 9.1 % (4.27-6.07)
== END 2020-03-08 23:59 | disposition home or self-care (01) ==
LOC: LAB.WCP 08:00
PROVIDERS: ATTEND Physician Assistant Medical
DX: E11.9 Type 2 diabetes mellitus without complications (principal); R41.3 Other amnesia
CPT/HCPCS: 36415; 80053; 80061; 82043; 82570; 82607; 83036; 83721; 84439; 84443

== ENCOUNTER 2020-04-14 08:00 | Outpatient (CLI) | payer MEDICARE, OTHER ==
[2020-04-14 19:07] LABS: CREATININE,URINE 162.2 mg/dL; MICROALBUM/CREATININE RATIO,UR 12.9 ug/mg (<30.0); MICROALBUMIN,URINE 2.1 mg/dL (0-300.0)
== END 2020-04-14 23:59 | disposition home or self-care (01) ==
LOC: LAB.R 08:00
PROVIDERS: ATTEND Physician Assistant Medical
DX: E11.9 Type 2 diabetes mellitus without complications (principal)
CPT/HCPCS: 82043; 82570

== ENCOUNTER 2020-06-14 08:00 | Outpatient (CLI) | payer MEDICARE, OTHER ==
[2020-06-14 12:10] LABS: BASOPHILS # (AUTO) 0.1 10^3/uL (0.0-0.1); BASOPHILS % (AUTO) 0.9 %; EOSINOPHILS # (AUTO) 0.7 10^3/uL (0.0-0.7); EOSINOPHILS % (AUTO) 10.8 %; HGB - HEMOGLOBIN 12.9 g/dL (14.0-18.0); LYMPHOCYTES # (AUTO) 1.4 10^3/uL (1.5-3.5); LYMPHOCYTES % (AUTO) 21.6 %; MEAN CORPUSCULAR HGB CONC 32.3 g/dL (32.0-36.0); MEAN CORPUSCULAR VOLUME 105.3 fL (80.0-94.0); MEAN PLATELET VOLUME 9.3 fL (7.4-11.4); MONOCYTES # (AUTO) 0.8 10^3/uL (0.0-1.0); MONOCYTES % (AUTO) 12.2 %; NEUTROPHILS # (AUTO) 3.5 10^3/uL (1.5-6.6); NEUTROPHILS % (AUTO) 54.2 %; PLT - PLATELET COUNT 271 10^3/uL (130-450); RED BLOOD COUNT 3.79 10^6/uL (4.70-6.10); WHITE BLOOD COUNT 6.4 x10^3/uL (4.8-10.8)
[2020-06-14 13:05] LABS: CALCIUM 9.6 mg/dL (8.5-10.3); CREATININE 1.3 mg/dL (0.6-1.2)
[2020-06-14 13:37] LABS: HEMOGLOBIN A1c% 8.6 % (4.27-6.07)
[2020-06-14 13:54] LABS: FREE T4 (FREE THYROXINE) 1.32 ng/dL (0.58-1.64)
== END 2020-06-14 23:59 | disposition home or self-care (01) ==
LOC: LAB.WCP 08:00
PROVIDERS: ATTEND Physician Assistant Medical
DX: E11.9 Type 2 diabetes mellitus without complications (principal); E03.9 Hypothyroidism, unspecified; E53.8 Deficiency of other specified B group vitamins
CPT/HCPCS: 36415; 80048; 82043; 82607; 83036; 84439; 84443; 85025

== ENCOUNTER 2020-10-13 08:00 | Outpatient (CLI) | payer MEDICARE, OTHER ==
[2020-10-13 18:29] LABS: % IRON SATURATION 23 % (20-50); ALBUMIN 4.2 g/dL (3.2-5.5); ALBUMIN/GLOBULIN RATIO 1.3 (1.0-2.2); ALKALINE PHOSPHATASE 45 IU/L (42-121); ALT ALANINE AMINOTRANSFERASE 31 IU/L (10-60); AST ASPARTATE AMINOTRANSFERASE 24 IU/L (10-42); BILIRUBIN,TOTAL 1.4 mg/dL (0.2-1.0); BUN - BLOOD UREA NITROGEN 20 mg/dL (6-20); CALCIUM 9.7 mg/dL (8.5-10.3); CARBON DIOXIDE - CO2 25 mmol/L (21-32); CHLORIDE 105 mmol/L (101-111); CHOL/HDL RATIO 2.6 (<5.0); CHOLESTEROL 110 mg/dL; CREATININE 1.4 mg/dL (0.6-1.2); GFR - MDRD 49 (>89); GLUCOSE 141 mg/dL (70-100); HDL CHOLESTEROL 43 mg/dL; IRON 83 ug/dL (45-182); LDL CHOLESTEROL,CALCULATED 52 mg/dL; LDL/HDL RATIO 1.2 (<3.6); POTASSIUM 4.3 mmol/L (3.5-5.0); SODIUM 140 mmol/L (135-145); TOTAL IRON BINDING CAPACITY 364 ug/dL (250-450); TOTAL PROTEIN 7.4 g/dL (6.7-8.2); TRANSFERRIN 260 mg/dL (180-329); TRIGLYCERIDES 75 mg/dL; VLDL CHOLESTEROL 15 mg/dL
[2020-10-13 18:36] LABS: BASOPHILS # (AUTO) 0.1 10^3/uL (0.0-0.1); BASOPHILS % (AUTO) 0.9 %; EOSINOPHILS # (AUTO) 0.5 10^3/uL (0.0-0.7); EOSINOPHILS % (AUTO) 7.5 %; HCT - HEMATOCRIT 45.1 % (42.0-52.0); HGB - HEMOGLOBIN 14.6 g/dL (14.0-18.0); LYMPHOCYTES # (AUTO) 1.7 10^3/uL (1.5-3.5); LYMPHOCYTES % (AUTO) 24.9 %; MEAN CORPUSCULAR HEMOGLOBIN 33.9 pg (27.0-31.0); MEAN CORPUSCULAR HGB CONC 32.4 g/dL (32.0-36.0); MEAN CORPUSCULAR VOLUME 104.6 fL (80.0-94.0); MEAN PLATELET VOLUME 9.1 fL (7.4-11.4); MONOCYTES # (AUTO) 0.8 10^3/uL (0.0-1.0); MONOCYTES % (AUTO) 11.5 %; NEUTROPHILS # (AUTO) 3.7 10^3/uL (1.5-6.6); NEUTROPHILS % (AUTO) 55.1 %; PLT - PLATELET COUNT 287 10^3/uL (130-450); RED BLOOD COUNT 4.31 10^6/uL (4.70-6.10); RED CELL DISTRIBUTION WIDTH 12.6 % (12.0-15.0); WHITE BLOOD COUNT 6.7 x10^3/uL (4.8-10.8)
[2020-10-13 18:37] LABS: THYROID STIMULATING HORMONE 0.27 uIU/mL (0.34-5.60)
[2020-10-13 18:43] LABS: FERRITIN 66.2 ng/mL (23.9-336.2)
[2020-10-13 19:23] LABS: ESTIMATED AVERAGE GLUCOSE 194 mg/dL (70-100); HEMOGLOBIN A1c% 8.4 % (4.27-6.07)
[2020-10-13 19:25] LABS: FREE T4 (FREE THYROXINE) 1.36 ng/dL (0.58-1.64)
== END 2020-10-13 23:59 | disposition home or self-care (01) ==
LOC: LAB.WCP 08:00
PROVIDERS: ATTEND Physician Assistant Medical
DX: E11.9 Type 2 diabetes mellitus without complications (principal); E53.8 Deficiency of other specified B group vitamins; D64.9 Anemia, unspecified; E03.9 Hypothyroidism, unspecified
CPT/HCPCS: 36415; 80053; 80061; 82607; 82728; 83036; 83540; 83721; 84439; 84443; 84466; 85025

== ENCOUNTER 2021-01-05 21:58 | Emergency (ER) | payer MEDICARE, OTHER ==
[2021-01-05] MEDS ORDERED: KETOROLAC 15 MG/ML VIAL IM STA (22:52)
--- NOTE | 2021-01-05 22:53 | ED Physician Documentation ---
History of Present Illness - Stated complaint Stated Complaint: RT ARM PX - Chief complaint Chief Complaint: Ext Problem - History obtained from History obtained from: Patient - Additonal information Additional information: 80-year-old man presents with right shoulder and arm pain gradual in onset after being very active with that recently. Patient states that he had muscle pain that has now resolved and he is not in any pain at present. He did think that he had some swelling but it is gone down. Denies motor or sensory deficits. Review of Systems Skin: denies: Lesions Musculoskeletal: reports: Extremity pain Neurologic: denies: Focal weakness, Numbness PD PAST MEDICAL HISTORY - Past Medical History Past Medical History: Yes Cardiovascular: High cholesterol, [place] Respiratory: Sleep apnea, Other Endocrine/Autoimmune: Type 2 diabetes GI: None : None HEENT: None Psych: None Musculoskeletal: None Derm: None - Past Surgical History Past Surgical History: Yes General: Hiatal hernia repair, Colonoscopy HEENT: Tonsil/Adenoidectomy - Present Medications Home Medications: Ambulatory Orders Medication Instructions Recorded Confirmed Alfuzosin HCl [Alfuzosin HCl ER] 1 tab PO DAILY 01/12/15 07/08/18 Aspirin 81 mg PO DAILY 01/12/15 07/08/18 Finasteride 5 mg PO DAILY 01/12/15 07/08/18 Insulin Glargine,Hum.rec.anlog 15 units SQ DAILY 01/12/15 07/08/18 [Lantus] Levothyroxine [Synthroid] 150 mcg PO DAILY 01/12/15 07/08/18 Simvastatin 15 mg PO DAILY 01/12/15 07/08/18 lisinopriL [Prinivil] 10 mg ORAL DAILY 01/13/15 07/08/18 - Allergies Allergies/Adverse Reactions: Allergies Allergy/AdvReac Type Severity Reaction Status Date / Time Penicillins AdvReac Anaphylaxis Verified 09/25/19 11:25 - Social History Does the pt smoke?: No Smoking Status: Never smoker Does the pt drink ETOH?: No Does the pt have substance abuse?: No - Immunizations Immunizations are current?: Yes - POLST Patient has POLST: No PD ED PE NORMAL - Vitals Vital signs reviewed: Yes - General General: Alert and oriented X 3, No acute distress, Well developed/nourished - HEENT HEENT: Atraumatic, PERRL, EOMI - Neck Neck: Supple, no meningeal sign - Derm Derm: Normal color, Warm and dry - Extremities Extremities: No deformity, No tenderness to palpate, Normal ROM s pain, Other (Right arm 2+ radial pulse. Normal sensation, capillary refill, strength. Full range of motion. Mild discomfort to palpation of medial proximal arm in a muscle distribution) Results - Vitals Vitals: Vital Signs - 24 hr 01/05/21 01/05/21 22:16 23:02 Temperature 37 C 37 C Heart Rate 75 71 Respiratory 14 15 Rate Blood Pressure 138/57 H 136/61 H O2 Saturation 99 99 Oxygen O2 Source Room air PD MEDICAL DECISION MAKING - ED course ED course: Differential considered. Discussed with patient lower likelihood of blood clot and went over return precautions. He will follow up with his primary doctor. Departure - Departure Disposition: 01 Home, Self Care Clinical Impression: Muscle strain Condition: Good Instructions: ED Strain Muscle Ext Comments: You are seen in the emergency department for shoulder muscle strain. I am glad that you are feeling better. Please return to the emergency department if you have any of the red flag signs that we discussed or if you have any new or worsening symptoms or other concerns. Follow-up with your primary doctor. Discharge Date/Time: 01/05/21 23:16
[2021-01-05 23:03] VITALS: BP 136/61
== END 2021-01-05 23:16 | disposition home or self-care (01) ==
LOC: ED 21:58
DX: S46.811A Strain of other muscles, fascia and tendons at shoulder and upper arm level, right arm, initial encounter (principal); X50.9XXA Other and unspecified overexertion or strenuous movements or postures, initial encounter; E11.9 Type 2 diabetes mellitus without complications; Z79.4 Long term (current) use of insulin; Z79.82 Long term (current) use of aspirin
CPT/HCPCS: 99283

== ENCOUNTER 2021-01-11 09:57 | Outpatient (CLI) | payer MEDICARE, OTHER ==
[2021-01-11 13:33] LABS: CALCIUM 9.5 mg/dL (8.5-10.3); CREATININE 1.3 mg/dL (0.6-1.2)
[2021-01-11 13:52] LABS: ESTIMATED AVERAGE GLUCOSE 183 mg/dL (70-100)
== END 2021-01-11 23:59 | disposition home or self-care (01) ==
LOC: LAB.WCP 09:57
PROVIDERS: ATTEND Physician Assistant Medical
DX: E11.9 Type 2 diabetes mellitus without complications (principal)
CPT/HCPCS: 36415; 80048; 83036

== ENCOUNTER 2021-04-19 08:00 | Outpatient (CLI) | payer MEDICARE, OTHER ==
[2021-04-19 17:47] LABS: BASOPHILS # (AUTO) 0.1 10^3/uL (0.0-0.1); BASOPHILS % (AUTO) 0.8 %; EOSINOPHILS # (AUTO) 0.4 10^3/uL (0.0-0.7); EOSINOPHILS % (AUTO) 4.9 %; HCT - HEMATOCRIT 43.5 % (42.0-52.0); HGB - HEMOGLOBIN 14.3 g/dL (14.0-18.0); LYMPHOCYTES # (AUTO) 1.7 10^3/uL (1.5-3.5); LYMPHOCYTES % (AUTO) 22.3 %; MEAN CORPUSCULAR HEMOGLOBIN 34.1 pg (27.0-31.0); MEAN CORPUSCULAR HGB CONC 32.9 g/dL (32.0-36.0); MEAN CORPUSCULAR VOLUME 103.8 fL (80.0-94.0); MEAN PLATELET VOLUME 9.4 fL (7.4-11.4); MONOCYTES # (AUTO) 0.9 10^3/uL (0.0-1.0); MONOCYTES % (AUTO) 11.2 %; NEUTROPHILS # (AUTO) 4.6 10^3/uL (1.5-6.6); NEUTROPHILS % (AUTO) 60.4 %; PLT - PLATELET COUNT 268 10^3/uL (130-450); RED BLOOD COUNT 4.19 10^6/uL (4.70-6.10); RED CELL DISTRIBUTION WIDTH 12.5 % (12.0-15.0); WHITE BLOOD COUNT 7.6 x10^3/uL (4.8-10.8)
[2021-04-19 18:07] LABS: ALBUMIN 4.2 g/dL (3.2-5.5); ALBUMIN/GLOBULIN RATIO 1.3 (1.0-2.2); ALKALINE PHOSPHATASE 60 IU/L (42-121); ALT ALANINE AMINOTRANSFERASE 27 IU/L (10-60); AST ASPARTATE AMINOTRANSFERASE 24 IU/L (10-42); BILIRUBIN,TOTAL 2.3 mg/dL (0.2-1.0); BUN - BLOOD UREA NITROGEN 31 mg/dL (6-20); CALCIUM 9.5 mg/dL (8.5-10.3); CARBON DIOXIDE - CO2 28 mmol/L (21-32); CHLORIDE 103 mmol/L (101-111); CHOL/HDL RATIO 2.9 (<5.0); CHOLESTEROL 114 mg/dL; CREATININE 1.5 mg/dL (0.6-1.2); GFR - MDRD 45 (>89); GLUCOSE 156 mg/dL (70-100); HDL CHOLESTEROL 39 mg/dL; LDL CHOLESTEROL,CALCULATED 60 mg/dL; LDL/HDL RATIO 1.5 (<3.6); POTASSIUM 4.2 mmol/L (3.5-5.0); SODIUM 138 mmol/L (135-145); TOTAL PROTEIN 7.4 g/dL (6.7-8.2); TRIGLYCERIDES 75 mg/dL; VLDL CHOLESTEROL 15 mg/dL
[2021-04-19 18:18] LABS: THYROID STIMULATING HORMONE 0.12 uIU/mL (0.34-5.60)
[2021-04-19 19:45] LABS: FREE T4 (FREE THYROXINE) 1.54 ng/dL (0.58-1.64)
[2021-04-19 20:32] LABS: ESTIMATED AVERAGE GLUCOSE 203 mg/dL (70-100); HEMOGLOBIN A1c% 8.7 % (4.27-6.07)
== END 2021-04-19 23:59 | disposition home or self-care (01) ==
LOC: LAB.WCP 08:00
PROVIDERS: ATTEND Physician Assistant Medical
DX: E11.9 Type 2 diabetes mellitus without complications (principal); E78.5 Hyperlipidemia, unspecified; E53.8 Deficiency of other specified B group vitamins; E03.9 Hypothyroidism, unspecified; D64.9 Anemia, unspecified
CPT/HCPCS: 36415; 80053; 80061; 82607; 83036; 83721; 84439; 84443; 85025

== ENCOUNTER 2021-07-13 08:05 | Outpatient (CLI) | payer MEDICARE, OTHER ==
[2021-07-13 12:33] LABS: ESTIMATED AVERAGE GLUCOSE 171 mg/dL (70-100); HEMOGLOBIN A1c% 7.6 % (4.27-6.07)
[2021-07-13 12:35] LABS: CALCIUM 9.7 mg/dL (8.5-10.3); CREATININE 1.5 mg/dL (0.6-1.2); POTASSIUM 3.9 mmol/L (3.5-5.0)
== END 2021-07-13 08:06 | disposition home or self-care (01) ==
LOC: LAB.N 08:05
PROVIDERS: ATTEND Physician Assistant Medical
DX: E11.9 Type 2 diabetes mellitus without complications (principal)
CPT/HCPCS: 36415; 80048; 83036

== ENCOUNTER 2021-11-02 09:59 | Outpatient (CLI) | payer MEDICARE, OTHER ==
[2021-11-02 12:27] LABS: CALCIUM 9.8 mg/dL (8.5-10.3); CREATININE 1.3 mg/dL (0.6-1.2); POTASSIUM 4.2 mmol/L (3.5-5.0)
[2021-11-02 13:11] LABS: ESTIMATED AVERAGE GLUCOSE 177 mg/dL (70-100); HEMOGLOBIN A1c% 7.8 % (4.27-6.07)
== END 2021-11-02 10:00 | disposition home or self-care (01) ==
LOC: LAB.N 09:59
PROVIDERS: ATTEND Nurse Practitioner Family
DX: E11.9 Type 2 diabetes mellitus without complications (principal)
CPT/HCPCS: 36415; 80048; 83036

== ENCOUNTER 2022-02-19 04:21 | Emergency (ER) | payer MEDICARE, OTHER ==
[2022-02-19] MEDS ORDERED: TRANEXAMIC ACID 1,000 MG/10 ML VIAL NAS STA (04:42)
--- NOTE | 2022-02-19 05:23 | ED Physician Documentation ---
PD HPI HEENT - Stated complaint Stated Complaint: NOSE BLEEDING - Chief complaint Chief Complaint: Heent - History obtained from History obtained from: Patient - Additional information Additional information: Patient is a 79-year-old male presenting for evaluation of nosebleed that started at 2 in the morning. He is on Brilinta. He believes it is coming from the left nostril. Nothing makes it better or worse. He has tried to hold pressure. He denies dizziness, chest pain or difficulty breathing. He denies recent URI symptoms. Review of Systems Constitutional: denies: Fever Nose: reports: Epistaxis Cardiac: denies: Chest pain / pressure Respiratory: denies: Dyspnea GI: denies: Abdominal Pain, Vomiting Musculoskeletal: denies: Back pain Neurologic: denies: Headache PD PAST MEDICAL HISTORY - Past Medical History Cardiovascular: High cholesterol, [place] Respiratory: Sleep apnea, Other Endocrine/Autoimmune: Type 2 diabetes GI: None : None HEENT: None Psych: None Musculoskeletal: None Derm: None - Past Surgical History Past Surgical History: Yes General: Hiatal hernia repair, Colonoscopy HEENT: Tonsil/Adenoidectomy - Present Medications Home Medications: Ambulatory Orders Medication Instructions Recorded Confirmed Alfuzosin HCl [Alfuzosin HCl ER] 1 tab PO DAILY 01/12/15 07/08/18 Aspirin 81 mg PO DAILY 01/12/15 07/08/18 Finasteride 5 mg PO DAILY 01/12/15 07/08/18 Insulin Glargine,Hum.rec.anlog 15 units SQ DAILY 01/12/15 07/08/18 [Lantus] Levothyroxine [Synthroid] 150 mcg PO DAILY 01/12/15 07/08/18 Simvastatin 15 mg PO DAILY 01/12/15 07/08/18 lisinopriL [Prinivil] 10 mg ORAL DAILY 01/13/15 07/08/18 - Allergies Allergies/Adverse Reactions: Allergies Allergy/AdvReac Type Severity Reaction Status Date / Time Penicillins AdvReac Anaphylaxis Verified 02/19/22 04:36 - Social History Does the pt smoke?: No Smoking Status: Never smoker Does the pt drink ETOH?: No Does the pt have substance abuse?: No - Immunizations Immunizations are current?: Yes - POLST Patient has POLST: No PD ED PE NORMAL - General General: Alert and oriented X 3, No acute distress, Well developed/nourished - HEENT HEENT: Atraumatic, Other (Dried blood outside both naris, Trickle of blood from left nare, No source of bleeding that is evident) - Cardiac Cardiac: RRR - Respiratory Respiratory: No respiratory distress - Derm Derm: Warm and dry - Neuro Neuro: Alert and oriented X 3, Normal speech Results - Vitals Vitals: Vital Signs - 24 hr 02/19/22 02/19/22 04:32 05:52 Temperature 36.6 C 36.5 C Heart Rate 60 61 Respiratory 18 18 Rate Blood Pressure 135/64 H 133/63 H O2 Saturation 96 98 Oxygen O2 Source Room air PD MEDICAL DECISION MAKING - ED course Complexity details: re-evaluated patient ED course: Patient presenting with epistaxis on Brilinta. A small amount of blood seen in left nare. TXA was atomized into the nose and nasal clamp was applied. The bleeding resolved. Patient counseled on strict return precautions. 0521 - No bleeding, patient has been laying flat without any further bleeding episodes. Departure - Departure Disposition: 01 Home, Self Care Clinical Impression: Epistaxis Condition: Stable Instructions: ED Nosebleed Comments: Do not stick anything in the nose and do not pick at the nose. If the bleeding recurs, hold pressure. If it does not resolve after 15 minutes then please return to the emergency department for evaluation. Discharge Date/Time: 02/19/22 05:52
[2022-02-19 05:53] VITALS: BP 133/63
== END 2022-02-19 05:52 | disposition home or self-care (01) ==
LOC: ED 04:21
DX: R04.0 Epistaxis (principal); E11.9 Type 2 diabetes mellitus without complications; Z79.4 Long term (current) use of insulin
CPT/HCPCS: 99282

== ENCOUNTER 2022-05-02 10:26 | Outpatient (CLI) | payer MEDICARE, OTHER ==
[2022-05-02 11:54] LABS: BASOPHILS # (AUTO) 0.1 10^3/uL (0.0-0.1); BASOPHILS % (AUTO) 0.7 %; EOSINOPHILS # (AUTO) 0.6 10^3/uL (0.0-0.7); EOSINOPHILS % (AUTO) 7.9 %; HGB - HEMOGLOBIN 13.6 g/dL (14.0-18.0); LYMPHOCYTES # (AUTO) 1.6 10^3/uL (1.5-3.5); MEAN CORPUSCULAR HEMOGLOBIN 33.7 pg (27.0-31.0); MEAN CORPUSCULAR HGB CONC 32.4 g/dL (32.0-36.0); MEAN PLATELET VOLUME 9.5 fL (7.4-11.4); MONOCYTES # (AUTO) 0.9 10^3/uL (0.0-1.0); MONOCYTES % (AUTO) 11.9 %; NEUTROPHILS # (AUTO) 4.2 10^3/uL (1.5-6.6); NEUTROPHILS % (AUTO) 57.4 %; PLT - PLATELET COUNT 248 10^3/uL (130-450); RED BLOOD COUNT 4.04 10^6/uL (4.70-6.10); RED CELL DISTRIBUTION WIDTH 12.8 % (12.0-15.0); WHITE BLOOD COUNT 7.4 x10^3/uL (4.8-10.8)
[2022-05-02 13:11] LABS: ALBUMIN/GLOBULIN RATIO 1.4 (1.0-2.2); ALKALINE PHOSPHATASE 44 IU/L (42-121); ALT ALANINE AMINOTRANSFERASE 21 IU/L (10-60); AST ASPARTATE AMINOTRANSFERASE 18 IU/L (10-42); BILIRUBIN,TOTAL 1.2 mg/dL (0.2-1.0); BUN - BLOOD UREA NITROGEN 19 mg/dL (6-20); CALCIUM 9.3 mg/dL (8.5-10.3); CARBON DIOXIDE - CO2 28 mmol/L (21-32); CHLORIDE 106 mmol/L (101-111); CHOL/HDL RATIO 2.5 (<5.0); CHOLESTEROL 113 mg/dL; CREATININE 1.2 mg/dL (0.6-1.2); GFR - MDRD 58 (>89); GLUCOSE 179 mg/dL (70-100); HDL CHOLESTEROL 45 mg/dL; LDL CHOLESTEROL,CALCULATED 49 mg/dL; LDL/HDL RATIO 1.1 (<3.6); POTASSIUM 4.2 mmol/L (3.5-5.0); SODIUM 143 mmol/L (135-145); TOTAL PROTEIN 6.9 g/dL (6.7-8.2); TRIGLYCERIDES 93 mg/dL; VLDL CHOLESTEROL 19 mg/dL
[2022-05-02 13:45] LABS: ESTIMATED AVERAGE GLUCOSE 197 mg/dL (70-100); HEMOGLOBIN A1c% 8.5 % (4.27-6.07)
[2022-05-02 15:20] LABS: THYROID STIMULATING HORMONE 0.19 uIU/mL (0.34-5.60)
[2022-05-02 16:35] LABS: FREE T4 (FREE THYROXINE) 1.19 ng/dL (0.58-1.64)
== END 2022-05-02 10:27 | disposition home or self-care (01) ==
LOC: LAB.N 10:26
PROVIDERS: ATTEND Physician Assistant Medical
DX: E11.9 Type 2 diabetes mellitus without complications (principal); E53.8 Deficiency of other specified B group vitamins; E03.9 Hypothyroidism, unspecified; D64.9 Anemia, unspecified
CPT/HCPCS: 36415; 80053; 80061; 82607; 83036; 83721; 84439; 84443; 85025

== ENCOUNTER 2022-06-15 10:32 | Outpatient (CLI) | payer MEDICARE, OTHER ==
[2022-06-15 12:53] LABS: CALCIUM 9.5 mg/dL (8.5-10.3); CREATININE 1.7 mg/dL (0.6-1.2); POTASSIUM 4.4 mmol/L (3.5-5.0)
[2022-06-15 13:06] LABS: ESTIMATED AVERAGE GLUCOSE 200 mg/dL (70-100); HEMOGLOBIN A1c% 8.6 % (4.27-6.07)
== END 2022-06-15 10:33 | disposition home or self-care (01) ==
LOC: LAB.N 10:32
PROVIDERS: ATTEND Physician Assistant Medical
DX: E11.9 Type 2 diabetes mellitus without complications (principal)
CPT/HCPCS: 36415; 80048; 83036

== ENCOUNTER 2022-09-25 14:18 | Outpatient (CLI) | payer MEDICARE, OTHER ==
[2022-09-25 17:53] LABS: ALBUMIN 4.3 g/dL (3.2-5.5); ALBUMIN/GLOBULIN RATIO 1.3 (1.0-2.2); ALKALINE PHOSPHATASE 51 IU/L (42-121); ALT ALANINE AMINOTRANSFERASE 26 IU/L (10-60); AST ASPARTATE AMINOTRANSFERASE 22 IU/L (10-42); BILIRUBIN,TOTAL 1.6 mg/dL (0.2-1.0); BUN - BLOOD UREA NITROGEN 33 mg/dL (6-20); CALCIUM 9.9 mg/dL (8.5-10.3); CARBON DIOXIDE - CO2 28 mmol/L (21-32); CHLORIDE 107 mmol/L (101-111); CHOL/HDL RATIO 2.8 (<5.0); CHOLESTEROL 105 mg/dL; CREATININE 1.5 mg/dL (0.6-1.2); GFR - MDRD 45 (>89); GLUCOSE 167 mg/dL (70-100); HDL CHOLESTEROL 37 mg/dL; LDL CHOLESTEROL,CALCULATED 53 mg/dL; LDL/HDL RATIO 1.4 (<3.6); POTASSIUM 4.4 mmol/L (3.5-5.0); SODIUM 139 mmol/L (135-145); TOTAL PROTEIN 7.7 g/dL (6.7-8.2); TRIGLYCERIDES 74 mg/dL; VLDL CHOLESTEROL 15 mg/dL
[2022-09-25 21:32] LABS: ESTIMATED AVERAGE GLUCOSE 209 mg/dL (70-100); HEMOGLOBIN A1c% 8.9 % (4.27-6.07)
== END 2022-09-25 14:19 | disposition home or self-care (01) ==
LOC: LAB.N 14:18
PROVIDERS: ATTEND Physician Assistant Medical
DX: E11.9 Type 2 diabetes mellitus without complications (principal)
CPT/HCPCS: 36415; 80053; 80061; 83036; 83721

== ENCOUNTER 2022-12-11 08:24 | Outpatient (CLI) | payer MEDICARE, OTHER ==
[2022-12-11 12:37] LABS: CALCIUM 9.3 mg/dL (8.5-10.3); CREATININE 1.2 mg/dL (0.6-1.2); POTASSIUM 3.9 mmol/L (3.5-5.0)
[2022-12-11 12:51] LABS: ESTIMATED AVERAGE GLUCOSE 183 mg/dL (70-100)
== END 2022-12-11 08:25 | disposition home or self-care (01) ==
LOC: LAB.N 08:24
PROVIDERS: ATTEND Physician Assistant Medical
DX: E11.9 Type 2 diabetes mellitus without complications (principal)
CPT/HCPCS: 36415; 80048; 83036

== ENCOUNTER 2023-03-23 11:14 | Outpatient (CLI) | payer MEDICARE, OTHER ==
[2023-03-23 18:30] LABS: ALBUMIN/GLOBULIN RATIO 1.4 (1.0-2.2); ALKALINE PHOSPHATASE 54 IU/L (42-121); ALT ALANINE AMINOTRANSFERASE 19 IU/L (10-60); AST ASPARTATE AMINOTRANSFERASE 15 IU/L (10-42); BILIRUBIN,TOTAL 0.9 mg/dL (0.2-1.0); BUN - BLOOD UREA NITROGEN 24 mg/dL (6-20); CALCIUM 9.7 mg/dL (8.5-10.3); CARBON DIOXIDE - CO2 29 mmol/L (21-32); CHLORIDE 110 mmol/L (101-111); CHOL/HDL RATIO 2.5 (<5.0); CHOLESTEROL 106 mg/dL; CREATININE 1.2 mg/dL (0.6-1.3); GFR - MDRD 58 (>89); GLUCOSE 174 mg/dL (74-104); HDL CHOLESTEROL 42 mg/dL; LDL CHOLESTEROL,CALCULATED 51 mg/dL; LDL/HDL RATIO 1.2 (<3.6); POTASSIUM 4.2 mmol/L (3.5-4.5); SODIUM 144 mmol/L (135-145); TOTAL PROTEIN 6.8 g/dL (6.4-8.9); TRIGLYCERIDES 67 mg/dL (48-352); VLDL CHOLESTEROL 13 mg/dL
[2023-03-23 21:52] LABS: ESTIMATED AVERAGE GLUCOSE 194 mg/dL (70-100); HEMOGLOBIN A1c% 8.4 % (4.27-6.07)
== END 2023-03-23 11:15 | disposition home or self-care (01) ==
LOC: LAB.N 11:14
PROVIDERS: ATTEND Physician Assistant Medical
DX: E11.9 Type 2 diabetes mellitus without complications (principal)
CPT/HCPCS: 36415; 80053; 80061; 83036; 83721

== ENCOUNTER 2023-08-28 16:48 | Outpatient (CLI) | payer MEDICARE, OTHER ==
[2023-08-28 20:52] LABS: BASOPHILS # (AUTO) 0.1 10^3/uL (0.0-0.1); BASOPHILS % (AUTO) 0.9 %; EOSINOPHILS # (AUTO) 0.4 10^3/uL (0.0-0.7); EOSINOPHILS % (AUTO) 5.5 %; HCT - HEMATOCRIT 41.4 % (42.0-52.0); HGB - HEMOGLOBIN 13.7 g/dL (14.0-18.0); LYMPHOCYTES # (AUTO) 2.1 10^3/uL (1.5-3.5); LYMPHOCYTES % (AUTO) 26.9 %; MEAN CORPUSCULAR HEMOGLOBIN 34.5 pg (27.0-31.0); MEAN CORPUSCULAR HGB CONC 33.1 g/dL (32.0-36.0); MEAN CORPUSCULAR VOLUME 104.3 fL (80.0-94.0); MEAN PLATELET VOLUME 9.6 fL (7.4-11.4); MONOCYTES # (AUTO) 0.8 10^3/uL (0.0-1.0); MONOCYTES % (AUTO) 10.7 %; NEUTROPHILS # (AUTO) 4.3 10^3/uL (1.5-6.6); NEUTROPHILS % (AUTO) 55.9 %; PLT - PLATELET COUNT 260 10^3/uL (130-450); RED BLOOD COUNT 3.97 10^6/uL (4.70-6.10); RED CELL DISTRIBUTION WIDTH 13.1 % (12.0-15.0); WHITE BLOOD COUNT 7.8 x10^3/uL (4.8-10.8)
[2023-08-28 21:15] LABS: ALBUMIN 4.1 g/dL (3.2-5.5); ALBUMIN/GLOBULIN RATIO 1.5 (1.0-2.2); ALKALINE PHOSPHATASE 51 IU/L (42-121); ALT ALANINE AMINOTRANSFERASE 20 IU/L (10-60); AST ASPARTATE AMINOTRANSFERASE 21 IU/L (10-42); BILIRUBIN,TOTAL 1.9 mg/dL (0.2-1.0); BUN - BLOOD UREA NITROGEN 24 mg/dL (6-20); CALCIUM 9.8 mg/dL (8.5-10.3); CARBON DIOXIDE - CO2 27 mmol/L (21-32); CHLORIDE 108 mmol/L (101-111); CHOL/HDL RATIO 2.5 (<5.0); CHOLESTEROL 91 mg/dL; CREATININE 1.3 mg/dL (0.6-1.3); GFR - MDRD 53 (>89); GLUCOSE 170 mg/dL (74-104); HDL CHOLESTEROL 37 mg/dL; LDL CHOLESTEROL,CALCULATED 23 mg/dL; LDL/HDL RATIO 0.6 (<3.6); POTASSIUM 4.4 mmol/L (3.5-4.5); SODIUM 141 mmol/L (135-145); TOTAL PROTEIN 6.8 g/dL (6.4-8.9); TRIGLYCERIDES 154 mg/dL (48-352); VLDL CHOLESTEROL 31 mg/dL
[2023-08-28 21:26] LABS: THYROID STIMULATING HORMONE 0.27 uIU/mL (0.34-5.60)
== END 2023-08-28 16:49 | disposition home or self-care (01) ==
LOC: LAB.N 16:48
PROVIDERS: ATTEND Physician Assistant Medical
DX: E78.5 Hyperlipidemia, unspecified (principal); E53.8 Deficiency of other specified B group vitamins; E03.9 Hypothyroidism, unspecified; D64.9 Anemia, unspecified
CPT/HCPCS: 36415; 80053; 80061; 82607; 83721; 84439; 84443; 85025

== ENCOUNTER 2023-11-21 10:39 | Outpatient (CLI) | payer MEDICARE, OTHER ==
[2023-11-21 18:25] LABS: CALCIUM 10.2 mg/dL (8.5-10.3); POTASSIUM 4.4 mmol/L (3.5-4.5)
[2023-11-21 21:39] LABS: ESTIMATED AVERAGE GLUCOSE 192 mg/dL (70-100); HEMOGLOBIN A1c% 8.3 % (4.27-6.07)
== END 2023-11-21 10:40 | disposition home or self-care (01) ==
LOC: LAB.N 10:39
PROVIDERS: ATTEND Physician Assistant Medical
DX: E11.9 Type 2 diabetes mellitus without complications (principal)
CPT/HCPCS: 36415; 80048; 83036

== ENCOUNTER 2024-02-07 16:51 | Outpatient (CLI) | payer MEDICARE, OTHER ==
--- NOTE | 2024-02-08 15:57 | Ultrasound Report ---
PROCEDURE: Renal (Retroperitoneal) INDICATIONS: RENAL INSUFFICIENCY TECHNIQUE: Real-time scanning was performed of the retroperitoneal organs, with image documentation. COMPARISON: 06/17/2019 FINDINGS: Kidneys: Kidneys are normal in size. Right kidney measures 10.6 cm long; left kidney measures 10.5 cm long. Right renal cortical thickness is 1.4 cm; left renal cortical thickness is 1.3 cm. No onel d masses, hydronephrosis, or nephrolithiasis. Increased renal echogenicity. Bladder: Pre-void bladder volume is 216 mL. Post-void residual is 177 mL. Pre-void images demonstr ate no intraluminal masses or stones. On pre-void images, both ureteral jets are noted with color Do ppler interrogation. (Of note, ureteral jets may not be detectable in up to 25% of cases due to insu fficient differences in specific gravity between ureteral and bladder urine). Miscellaneous: No free abdominal fluid. IMPRESSION: Increased renal cortical echogenicity, consistent with chronic parenchymal disease. No hydronephrosis . Abnormal post void residual of 177 mL. Reviewed by: Brody Murrieta MD on 02/08/2024 3:56 PM PDT Approved by: Brody Murrieta MD on 02/08/2024 3:56 PM PDT Station ID: [id number]
== END 2024-02-07 16:52 | disposition home or self-care (01) ==
LOC: DI 16:51
PROVIDERS: ATTEND Physician Assistant Medical
DX: N18.9 Chronic kidney disease, unspecified (principal)

== ENCOUNTER 2024-02-13 11:15 | Outpatient (CLI) | payer MEDICARE, OTHER ==
[2024-02-13 18:18] LABS: CALCIUM 9.7 mg/dL (8.5-10.3); CREATININE 1.5 mg/dL (0.6-1.3); POTASSIUM 4.4 mmol/L (3.5-4.5)
[2024-02-13 21:47] LABS: ESTIMATED AVERAGE GLUCOSE 160 mg/dL (70-100); HEMOGLOBIN A1c% 7.2 % (4.27-6.07)
== END 2024-02-13 11:16 | disposition home or self-care (01) ==
LOC: LAB.N 11:15
PROVIDERS: ATTEND Physician Assistant Medical
DX: E11.9 Type 2 diabetes mellitus without complications (principal)
CPT/HCPCS: 36415; 80048; 83036